=== PATIENT | female | born 1985 | race African-American/Black ===

== ENCOUNTER 2024-06-23 07:28 | Outpatient (CLI) | payer BC, OTHER | END 2024-06-23 07:29 | disposition home or self-care (01) | LOC: CSHULT 07:28 | PROVIDERS: ATTEND Nurse Practitioner Women's Health | DX: O09.522 Supervision of elderly multigravida, second trimester (principal); Z3A.19 19 weeks gestation of pregnancy | CPT/HCPCS: 76805 ==

== ENCOUNTER 2024-10-03 10:30 | Day surgery (SDC) | payer OTHER ==
[2024-10-03 10:56] VITALS: BMI 25.3
[2024-10-03] MEDS ORDERED: Lactated Ringer's 1,000 ML IV SCH (11:15)
[2024-10-03] MEDS: Famotidine/PF 20 mg/2ml Vial SLOW IVP SCH (11:46)
[2024-10-03] MEDS: Metoclopramide HCl 10 MG TAB PO SCH (11:46)
[2024-10-03] MEDS: Loperamide HCl 2 MG CAP PO PRN (11:47)
== END 2024-10-03 15:05 | disposition home or self-care (01) ==
LOC: CSHLD/OP 10:30
PROVIDERS: ATTEND Family Medicine
DX: O99.613 Diseases of the digestive system complicating pregnancy, third trimester (principal); A08.4 Viral intestinal infection, unspecified; K58.9 Irritable bowel syndrome, unspecified; O34.211 Maternal care for low transverse scar from previous cesarean delivery; Z3A.34 34 weeks gestation of pregnancy; Z79.82 Long term (current) use of aspirin; Z79.899 Other long term (current) drug therapy
CPT/HCPCS: 96360; 96361; 96375; 99283; J3490

== ENCOUNTER 2024-11-06 14:11 | Outpatient (CLI) | payer BC, OTHER ==
[2024-11-06 16:27] LABS: Hemoglobin 12.2 g/dL (12.0-15.5); Mean Corpuscular Hemoglobin 27.9 pg (27.0-33.0); Mean Corpuscular Volume 84.5 fL (81.6-98.3); Mean Platelet Volume 11.7 fL (7.4-10.4); Platelet Count 203 10x3/uL (150-450); RBC Distribution Width 13.7 % (11.5-14.5); Red Blood Cell (RBC) Count 4.38 10x6/uL (3.90-5.03); White Blood Cell (WBC) Count 7.6 10x3/uL (3.5-10.5)
[2024-11-07 07:31] LABS: Syphilis Antibody Nonreactive (Nonreactive); Syphilis Antibody Index 0.03 S/CO (<1.00 Non-Reactive)
[2024-11-07 07:33] LABS: HBsAg Index 0.16 S/CO (0-0.99); HIV (1/2) Antibody/Antigen Non-Reactive (NonReactive); HIV 1/2 INDEX 0.08 S/CO (<1.00); Hep B Surf Ag Non-Reactive S/CO (NonReactive)
== END 2024-11-06 14:12 | disposition home or self-care (01) ==
LOC: CSHLAB 14:11
PROVIDERS: ATTEND Family Medicine
DX: Z01.812 Encounter for preprocedural laboratory examination (principal)
CPT/HCPCS: 85027; 86780; 86850; 86900; 86901; 87340; 87389

== ENCOUNTER 2024-11-07 05:31 | Inpatient (IN) | payer MEDICAID, OTHER, SELFPAY ==
[2024-11-07 05:34] VITALS: BMI 28.6
[2024-11-07] MEDS ORDERED: Famotidine/PF 20 mg/2ml Vial SLOW IVP PRN (05:45)
[2024-11-07] MEDS ORDERED: Promethazine HCl 25 MG/ML VIAL IM PRN ×3 (05:45→10:38)
[2024-11-07] MEDS ORDERED: Methylergonovine 0.2 MG/ML VIAL IM PRN (05:45)
[2024-11-07] MEDS ORDERED: Oxytocin 30 units/NS 500 ML 500 ML IV SCH (05:45)
[2024-11-07] MEDS ORDERED: Tranexamic Acid 1,000 MG/10 ML VIAL IVP PRN (05:45)
[2024-11-07] MEDS ORDERED: Bicitra 30 ML UDCUP PO PRN (05:45)
[2024-11-07] MEDS ORDERED: Ondansetron PF 4 MG/2 ML Vial IVP PRN ×4 (05:45→10:38)
[2024-11-07] MEDS ORDERED: Misoprostol 200 MCG TAB PR PRN (05:45)
[2024-11-07] MEDS ORDERED: CEFAZOLIN 2 GM in Sodium Chloride 0.9% 100 ML IVPB SCH (05:45)
[2024-11-07] MEDS: hydrALAZINE 20 MG/ML VIAL SLOW IVP PRN (06:49)
[2024-11-07] MEDS: Magnesium Sulfate 20 gm/500 ml 20 GM/500 ML BAG ONE (06:53)
[2024-11-07] MEDS: Lactated Ringer's 1,000 ML IV SCH (07:20)
[2024-11-07] MEDS ORDERED: Naloxone HCl 0.4 mg/ml Vial IVP PRN ×2 (08:20)
[2024-11-07] MEDS ORDERED: Moisturizing Cream (Eucerin) 113 GM JAR TOP PRN (08:20)
[2024-11-07] MEDS ORDERED: Ketorolac Tromethamine 30 MG (1 mL) VIAL IVP PRN (08:20)
[2024-11-07] MEDS ORDERED: Naloxone HCl 0.4 mg/ml Vial IV PRN (08:20)
[2024-11-07] MEDS ORDERED: Morphine 4 MG/ML VIAL SLOW IVP PRN (08:20)
[2024-11-07] MEDS ORDERED: Ketorolac Tromethamine 30 MG (1 mL) VIAL IVP SCH (08:30)
[2024-11-07] MEDS ORDERED: Communication Order-Pharmacy FS SCH (08:30)
[2024-11-07] MEDS: Diphenoxylate HCl/Atropine Tablet PO PRN (09:03)
[2024-11-07] MEDS: Carboprost 250 MCG/ML AMP IM PRN (09:14)
[2024-11-07] MEDS: Ondansetron PF 4 MG/2 ML Vial ONE (09:17)
[2024-11-07] MEDS: Morphine PF 10 MG/10 ML VIAL ONE (09:17)
[2024-11-07] MEDS: PHENYLEPHRINE-NS 100 MCG/ML 10 ML SYRINGE ONE (09:18)
[2024-11-07] MEDS: Erythromycin Base 0.5% Oint 1 GM TUBE ONE (09:18)
[2024-11-07] MEDS: Oxytocin 10 UNITS/ML VIAL ONE ×2 (09:18)
[2024-11-07] MEDS: fentaNYL 50 mcg/mL 1 mL Vial SLOW IVP PRN (09:36)
[2024-11-07] MEDS: diphenhydrAMINE 50 MG/ML VIAL IVP PRN (10:29)
[2024-11-07] MEDS ORDERED: Lanolin Ointment 7 GM TUBE TOP PRN (10:38)
[2024-11-07] MEDS ORDERED: Lorazepam 2 MG/ML VIAL SLOW IVP PRN (10:38)
[2024-11-07] MEDS ORDERED: diphenhydrAMINE 25 MG CAP PO PRN (10:38)
[2024-11-07] MEDS ORDERED: hydrALAZINE 20 MG/ML VIAL SLOW IVP PRN ×3 (10:38)
[2024-11-07] MEDS ORDERED: Calcium Gluc 4.6 MEQ/10 ML (100 MG/ML) SLOW IVP PRN (10:38)
[2024-11-07] MEDS: Meperidine HCl/PF 25 MG (1 mL) VIAL SLOW IVP PRN (11:01)
[2024-11-07 11:24] LABS: Creatinine, Urine 25.81 mg/dL (47-110)
[2024-11-07] MEDS: Ketorolac Tromethamine 30 MG (1 mL) VIAL IVP SCH (12:29)
[2024-11-07] MEDS: Simethicone Chewable 80 MG TAB PO PRN (12:29)
[2024-11-07] MEDS ORDERED: Morphine 2 MG/ML VIAL SLOW IVP PRN (13:39)
[2024-11-07] MEDS: Morphine 4 MG/ML VIAL SLOW IVP PRN (13:59)
[2024-11-07] MEDS ORDERED: Misoprostol 200 MCG TAB PO SCH (15:00)
[2024-11-07] MEDS: Magnesium Sulfate 20 gm/500 ml 20 GM/500 ML BAG IVPB SCH (16:36)
[2024-11-07] MEDS ORDERED: Meperidine HCl/PF 25 MG (1 mL) VIAL IM PRN (20:30)
[2024-11-08 05:30] LABS: Hematocrit 20.9 % (34.9-44.5); Hemoglobin 6.9 g/dL (12.0-15.5); Mean Platelet Volume 10.8 fL (7.4-10.4); Platelet Count 163 10x3/uL (150-450); RBC Distribution Width 13.6 % (11.5-14.5); Red Blood Cell (RBC) Count 2.46 10x6/uL (3.90-5.03); White Blood Cell (WBC) Count 13.1 10x3/uL (3.5-10.5)
[2024-11-08 05:45] LABS: ALT (SGPT) 18 U/L (8-55); AST (SGOT) 25 U/L (5-34); Albumin 2.4 g/dL (3.5-5.0); Alkaline Phosphatase 114 U/L (40-110); Anion Gap 14 mmol/L (10-20); BUN (Urea Nitrogen) 8 mg/dL (7.0-18.7); Bilirubin, Total 0.4 mg/dL (0.2-1.2); Calc. Creatinine Clearance 131 mL/min (70-130); Calcium 7.5 mg/dL (7.8-10.44); Carbon Dioxide 23 mmol/L (22-29); Chloride 101 mmol/L (98-107); Estimated GFR 102; Globulin 2.3 g/dL (2.4-3.5); Glucose 85 mg/dL (70-105); Potassium 5.1 mmol/L (3.5-5.1); Protein, Total 4.7 g/dL (6.0-8.3); Sodium 133 mmol/L (136-145)
[2024-11-08] MEDS: Prenatal Vitamin 1 TAB PO SCH (09:22)
[2024-11-08] MEDS: Ferrous Sulfate 325 MG TAB PO SCH (09:22)
[2024-11-08] MEDS: Docusate 100 MG CAP PO SCH (09:22)
[2024-11-08] MEDS: HYDROcodone/Acetaminophen 5/325 mg Tablet PO PRN ×2 (11:23→22:34)
[2024-11-08] MEDS: Ibuprofen 800 MG TAB PO SCH (14:59)
[2024-11-08] MEDS: Boostrix 0.5 ML (Tdap) VIAL (>/=7 yrs of age) IM ONE (15:54)
[2024-11-08] MEDS: Bisacodyl 10 MG SUPP PR PRN (17:22)
[2024-11-09] MEDS: NIFEdipine XL 30 MG ER.TAB PO SCH (09:35)
[2024-11-09] MEDS: cloNIDine 0.1 MG TAB PO PRN (20:24)
[2024-11-10] MEDS: NIFEdipine XL 30 MG ER.TAB PO SCH (07:42)
[2024-11-11 07:40] VITALS: BP 121/72; TEMP 98.6
== END 2024-11-11 10:57 | disposition home or self-care (01) | DRG 788 ==
LOC: CSHLD 05:31 → CSHPP 11-08 15:33
PROVIDERS: ADMIT Family Medicine; ATTEND Family Medicine
PROC: 10D00Z1 Extraction of Products of Conception, Low, Open Approach (ICD-10-PCS; principal; 2024-11-07)
DX: O34.211 Maternal care for low transverse scar from previous cesarean delivery (principal); Z79.82 Long term (current) use of aspirin; Z3A.39 39 weeks gestation of pregnancy; Z37.0 Single live birth; O14.04 Mild to moderate pre-eclampsia, complicating childbirth
CPT/HCPCS: 36415; 51702; 80053; 82570; 84156; 85027; C1889; J0360; J1200; J1885; J2175; J2272; J2274; J2405; J2590; J3010; J3475; J3490; J7120

== ENCOUNTER 2024-11-20 10:12 | Emergency (ER) | payer MEDICAID ==
[2024-11-20] MEDS ORDERED: Iopamidol 370 76% 100 ML VIAL ONE (10:17)
[2024-11-20 12:00] LABS: #Basophils 0.05 10x3/uL (0.0-0.2); #Eosinophils 0.13 10x3/uL (0.0-0.5); #Monocytes 0.48 10x3/uL (0.0-1.1); #Neutrophils 6.25 10x3/uL (1.5-8.4); %Basophils 0.6 % (0.0-2.0); %Eosinophils 1.6 % (0.0-6.0); %Lymphocytes 15.6 % (18.0-47.0); %Monocytes 5.8 % (0.0-10.0); %Neutrophils 75.9 % (40.0-75.0); Hematocrit 25.6 % (34.9-44.5); Hemoglobin 7.8 g/dL (12.0-15.5); Mean Corpuscular HGB CONC 30.5 g/dL (32.0-36.0); Mean Corpuscular Hemoglobin 26.7 pg (27.0-33.0); Mean Corpuscular Volume 87.7 fL (81.6-98.3); Mean Platelet Volume 8.6 fL (7.4-10.4); Platelet Count 499 10x3/uL (150-450); RBC Distribution Width 14.8 % (11.5-14.5); Red Blood Cell (RBC) Count 2.92 10x6/uL (3.90-5.03); White Blood Cell (WBC) Count 8.2 10x3/uL (3.5-10.5)
[2024-11-20] MEDS ORDERED: Ketorolac Tromethamine 30 MG (1 mL) VIAL ONE ×2 (12:07→16:16)
[2024-11-20] MEDS ORDERED: Acetaminophen 500 MG TAB ONE (12:07)
[2024-11-20 12:12] LABS: BHCG - Serum POSITIVE (NEGATIVE); Pregs Control Background? CLEAR/WHITE (CLR/WHITE); Pregs Control Bar Appear? YES (CONTROL BAR)
[2024-11-20 12:15] LABS: ALT (SGPT) 14 U/L (8-55); AST (SGOT) 20 U/L (5-34); Albumin 3.2 g/dL (3.5-5.0); Alkaline Phosphatase 138 U/L (40-110); Anion Gap 11 mmol/L (10-20); BUN (Urea Nitrogen) 10 mg/dL (7.0-18.7); Bilirubin, Total 0.8 mg/dL (0.2-1.2); Calc. Creatinine Clearance 0 mL/min (70-130); Calcium 9.1 mg/dL (7.8-10.44); Carbon Dioxide 24 mmol/L (22-29); Chloride 110 mmol/L (98-107); Estimated GFR 115; Globulin 3.3 g/dL (2.4-3.5); Glucose 88 mg/dL (70-105); Lipase 35 U/L (8-78); Potassium 4.1 mmol/L (3.5-5.1); Protein, Total 6.5 g/dL (6.0-8.3); Sodium 141 mmol/L (136-145)
[2024-11-20 12:33] LABS: Bilirubin Neg (Negative); Blood, Urine 150 (Negative); Clarity Clear (Clear); Glucose, Urine (Dipstick) Normal (Negative); Ketone, Urine Negative (Negative); Leukocyte 100 (Negative); Nitrite Negative (Negative); Protein, Urine (Dipstick) 15 mg/dl (Neg-Trace); Urobilinogen Normal mg/dL (Less than 2); pH, Urine 6.5 (5.0-9.0)
[2024-11-20 12:45] LABS: Pregnancy Test - Urine (BHCG) POSITIVE (Negative); Pregu Control Background? CLEAR/WHITE (CLR/WHITE); Pregu Control Bar Appear? YES (CONTROL BAR)
[2024-11-20 12:52] LABS: Bacteria/HPF 1+ HPF (None Seen); CAUTI Indications for Culture Pelvic or flank pain; Squamous Epithelial 0-3 HPF (0-3)
[2024-11-20 12:53] LABS: Urine Culture Reflex No No
[2024-11-20] MEDS ORDERED: Labetalol HCl 100 MG/20 ML VIAL ONE (14:08)
[2024-11-20] MEDS ORDERED: Magnesium 2 GM/50 ML BAG (IN WATER) ONE (14:08)
[2024-11-20] MEDS ORDERED: cefTRIAXone (ROCEPHIN) 1 GM VIAL ONE (14:46)
[2024-11-20] MEDS ORDERED: Mag-Al 1200 mg/1200 mg/30 ML UDCUP ONE (14:46)
[2024-11-20] MEDS ORDERED: Famotidine/PF 20 mg/2ml Vial ONE (14:46)
[2024-11-21] MEDS ORDERED: Ketorolac Tromethamine 30 MG (1 mL) VIAL ONE (23:18)
[2024-11-21] MEDS ORDERED: Ondansetron PF 4 MG/2 ML Vial ONE (23:18)
[2024-11-21] MEDS ORDERED: Famotidine/PF 20 mg/2ml Vial ONE (23:19)
== END 2024-11-20 16:29 ==
LOC: CSHERS 10:12
DX: O86.20 Urinary tract infection following delivery, unspecified (principal); N39.0 Urinary tract infection, site not specified; G89.18 Other acute postprocedural pain; K66.1 Hemoperitoneum
CPT/HCPCS: 74177; 80053; 81001; 81025; 83605; 83690; 84703; 85025; 96374; 96375; 96376; J0696; J1885; J3475; J3490

== ENCOUNTER 2024-11-21 21:10 | Emergency (ER) | payer MEDICAID ==
[2024-11-21 23:27] LABS: #Basophils 0.07 10x3/uL (0.0-0.2); #Eosinophils 0.14 10x3/uL (0.0-0.5); #Monocytes 0.46 10x3/uL (0.0-1.1); #Neutrophils 7.98 10x3/uL (1.5-8.4); %Basophils 0.7 % (0.0-2.0); %Eosinophils 1.4 % (0.0-6.0); %Lymphocytes 12.4 % (18.0-47.0); %Monocytes 4.6 % (0.0-10.0); %Neutrophils 80.6 % (40.0-75.0); Hematocrit 28.9 % (34.9-44.5); Hemoglobin 8.9 g/dL (12.0-15.5); Mean Corpuscular HGB CONC 30.8 g/dL (32.0-36.0); Mean Corpuscular Hemoglobin 27.1 pg (27.0-33.0); Mean Corpuscular Volume 87.8 fL (81.6-98.3); Platelet Count 545 10x3/uL (150-450); RBC Distribution Width 15.1 % (11.5-14.5); Red Blood Cell (RBC) Count 3.29 10x6/uL (3.90-5.03); White Blood Cell (WBC) Count 9.9 10x3/uL (3.5-10.5)
[2024-11-21 23:45] LABS: ALT (SGPT) 16 U/L (8-55); AST (SGOT) 23 U/L (5-34); Albumin 3.8 g/dL (3.5-5.0); Alkaline Phosphatase 151 U/L (40-110); Anion Gap 14 mmol/L (10-20); BUN (Urea Nitrogen) 10 mg/dL (7.0-18.7); Bilirubin, Total 0.9 mg/dL (0.2-1.2); Calc. Creatinine Clearance 0 mL/min (70-130); Calcium 9.9 mg/dL (7.8-10.44); Carbon Dioxide 24 mmol/L (22-29); Chloride 107 mmol/L (98-107); Estimated GFR 88; Glucose 106 mg/dL (70-105); Lipase 85 U/L (8-78); Potassium 4.3 mmol/L (3.5-5.1); Protein, Total 7.8 g/dL (6.0-8.3); Sodium 141 mmol/L (136-145)
== END 2024-11-22 01:48 | disposition home or self-care (01) ==
LOC: CSHERS 21:10
DX: O99.893 Other specified diseases and conditions complicating puerperium (principal); R10.13 Epigastric pain
CPT/HCPCS: 80053; 83690; 85025; 96374; 96375